=== PATIENT | male | born 1940 | race Caucasian/White ===

== ENCOUNTER 2022-05-28 18:54 | Observation (INO) | payer OTHER, BC ==
[2022-05-28 19:24] VITALS: BMI 35.2
[2022-05-28 20:13] LABS: BASO % 1.3 % (0-2.0); EOS % 1.5 % (0-4.5); HEMATOCRIT 38.2 % (35.4-49); HEMOGLOBIN 13.3 GM/dL (11.7-16.9); LYMPH % 21.9 % (8-40); MCH 30.9 pg (25.7-33.7); MCHC 34.8 g/dl (32.0-35.9); MEAN CELL VOLUME 88.9 fl (80-96); MEAN PLT VOLUME 8.4 fl (7.5-11.1); MONO % 8.5 % (3.8-10.2); NEUT % 66.8 % (42.8-82.8); PLATELET COUNT 271 10^3/uL (134-434); RDW 13.9 % (11.9-15.9); WHITE BLOOD COUNT 8.9 K/mm3 (4.0-10.0)
[2022-05-28 20:23] LABS: INR 1.03 (0.83-1.09); PROTHROMBIN TIME (PATIENT) 11.9 SEC (9.7-13.0)
[2022-05-28 20:25] LABS: ACTIVATED PTT 32.2 SECONDS (25.2-36.5)
[2022-05-28 20:34] LABS: CALCIUM 8.9 mg/dL (8.5-10.1)
[2022-05-28 20:35] LABS: ALBUMIN 3.6 g/dl (3.4-5.0); BLOOD UREA NITROGEN 21.8 mg/dL (7-18)
[2022-05-28 20:38] LABS: CREATININE 1.6 mg/dL (0.55-1.3)
[2022-05-28 20:39] LABS: BILIRUBIN,TOTAL 0.5 mg/dL (0.2-1); TOT PROT 6.6 g/dl (6.4-8.2)
[2022-05-28 20:43] LABS: N-TERMINAL BNP 296.9 pg/ml (5-450)
[2022-05-28] MEDS ORDERED: SODIUM CHLORIDE 0.9% 500 ML INFUS.BAG IV ONE (21:09)
[2022-05-28] MEDS ORDERED: FAMOTIDINE 20 MG/50 ML IVPB 20 MG/50 ML MG IVPB ONE ×2 (21:31→22:02)
[2022-05-28] MEDS ORDERED: MAG HYDROX/AL HYDROX/SIMETH 30 ML UNIT-DOSE CUP PO ONE (21:31)
[2022-05-28] MEDS: ACETAMINOPHEN 1000 MG/100 ML BAG IVPB ONE ×2 (22:01→22:03)
[2022-05-28] MEDS ORDERED: ACETAMINOPHEN 325 MG TABLET (FP) ONE (22:04)
[2022-05-28] MEDS ORDERED: ACETAMINOPHEN 325 MG TABLET (FP) PO ONE (22:05)
[2022-05-28 22:21] LABS: EPI CELLS 2 /uL (0-25.1); HYALINE CASTS 0 /uL (0-3.1); PH,URINE 5.5 (5.0-8.0); URINE APPEARANCE CLEAR; URINE BACTERIA 53 /uL (0-1359); URINE BILIRUBIN NEGATIVE (NEGATIVE); URINE COLOR YELLOW; URINE GLUCOSE (UA) NEGATIVE (NEGATIVE); URINE KETONE NEGATIVE (NEGATIVE); URINE LEUK ESTERASE TRACE (NEGATIVE); URINE NITRITE NEGATIVE (NEGATIVE); URINE PROTEIN NEGATIVE (NEGATIVE); URINE RBC 2 /uL (0-23.9); URINE UROBILINOGEN 0.2 mg/dL (0.2-1.0); URINE WBC 5 /uL (0-25.8)
[2022-05-29 06:59] LABS: HEMATOCRIT 39.5 % (35.4-49); HEMOGLOBIN 13.5 GM/dL (11.7-16.9); MCH 30.1 pg (25.7-33.7); MCHC 34.3 g/dl (32.0-35.9); MEAN CELL VOLUME 87.9 fl (80-96); MEAN PLT VOLUME 8.4 fl (7.5-11.1); PLATELET COUNT 235 10^3/uL (134-434); RBC 4.49 M/mm3 (4.00-5.60); RDW 13.6 % (11.9-15.9); WHITE BLOOD COUNT 13.7 K/mm3 (4.0-10.0)
[2022-05-29 07:20] LABS: BLOOD UREA NITROGEN 21.2 mg/dL (7-18); CALCIUM 8.5 mg/dL (8.5-10.1); MAGNESIUM 1.7 mg/dL (1.8-2.4)
[2022-05-29 07:21] LABS: ALBUMIN 3.2 g/dl (3.4-5.0)
[2022-05-29 07:23] LABS: CREATININE 1.6 mg/dL (0.55-1.3); PHOSPHOROUS 2.1 mg/dL (2.5-4.9)
[2022-05-29 07:25] LABS: BILIRUBIN,TOTAL 0.7 mg/dL (0.2-1); TOT PROT 5.8 g/dl (6.4-8.2)
[2022-05-29 09:08] LABS: ANISOCYTOSIS 1+; MACROCYTOSIS 1+
[2022-05-29] MEDS: INSULIN SLIDING SCALE (NOVOLOG) 1 VIAL SQ SCH ×4 (09:13→22:30)
[2022-05-29] MEDS ORDERED: POLYETHYLENE GLYCOL (HEALTHYLAX) 3350 17 GM PACKET ONE (09:19)
[2022-05-29] MEDS ORDERED: ATORVASTATIN CA 10 MG TABLET (FP) ONE (09:19)
[2022-05-29] MEDS ORDERED: HYDROCHLOROTHIAZIDE 25 MG TABLET (FP) ONE (09:19)
[2022-05-29] MEDS ORDERED: LISINOPRIL 20 MG TABLET ONE (09:19)
[2022-05-29] MEDS ORDERED: HEPARIN NA (PORCINE) 5,000 UNITS/ML 1ML VIAL ONE (09:20)
[2022-05-29] MEDS: POLYETHYLENE GLYCOL (HEALTHYLAX) 3350 17 GM PACKET PO SCH ×3 (09:26→22:22)
[2022-05-29] MEDS: HEPARIN NA (PORCINE) 5,000 UNITS/ML 1ML VIAL SQ SCH ×3 (09:27→22:22)
[2022-05-29] MEDS: ATORVASTATIN CA 10 MG TABLET (FP) PO SCH (09:27)
[2022-05-29] MEDS: LISINOPRIL 20 MG TABLET PO SCH (09:27)
[2022-05-29] MEDS ORDERED: metFORMIN HCL 500 MG TABLET (FP) PO SCH (10:00)
[2022-05-29] MEDS ORDERED: HYDROCHLOROTHIAZIDE 12.5 MG CAPSULE (FP) PO SCH (10:00)
[2022-05-29] MEDS ORDERED: MAGNESIUM OXIDE 400 MG TABLET (FP) PO ONE (12:31)
[2022-05-29 22:54] VITALS: RESP 18
[2022-05-30] MEDS: HEPARIN NA (PORCINE) 5,000 UNITS/ML 1ML VIAL SQ SCH ×3 (06:01→21:58)
[2022-05-30] MEDS: INSULIN SLIDING SCALE (NOVOLOG) 1 VIAL SQ SCH ×4 (06:01→21:58)
[2022-05-30] MEDS: POLYETHYLENE GLYCOL (HEALTHYLAX) 3350 17 GM PACKET PO SCH ×3 (06:01→21:58)
[2022-05-30] MEDS: LISINOPRIL 20 MG TABLET PO SCH (09:42)
[2022-05-30] MEDS: ATORVASTATIN CA 10 MG TABLET (FP) PO SCH (09:43)
[2022-05-30 09:52] LABS: BASO % 0.9 % (0-2.0); EOS % 5.5 % (0-4.5); HEMATOCRIT 36.9 % (35.4-49); HEMOGLOBIN 12.8 GM/dL (11.7-16.9); LYMPH % 7.7 % (8-40); MCH 30.5 pg (25.7-33.7); MCHC 34.5 g/dl (32.0-35.9); MEAN CELL VOLUME 88.2 fl (80-96); MEAN PLT VOLUME 8.8 fl (7.5-11.1); NEUT % 77.9 % (42.8-82.8); PLATELET COUNT 256 10^3/uL (134-434); RBC 4.19 M/mm3 (4.00-5.60); RDW 14.1 % (11.9-15.9); WHITE BLOOD COUNT 10.7 K/mm3 (4.0-10.0)
[2022-05-30 10:15] LABS: ALBUMIN 3.1 g/dl (3.4-5.0); CALCIUM 8.5 mg/dL (8.5-10.1); MAGNESIUM 2.2 mg/dL (1.8-2.4)
[2022-05-30 10:16] LABS: BLOOD UREA NITROGEN 28.6 mg/dL (7-18)
[2022-05-30 10:18] LABS: CREATININE 1.8 mg/dL (0.55-1.3)
[2022-05-30 10:20] LABS: TOT PROT 5.9 g/dl (6.4-8.2)
[2022-05-30] MEDS ORDERED: SODIUM CHLORIDE 1,000 ML IV SCH (11:30)
[2022-05-30] MEDS: NAPH,MB-DB/K PH,MBDB POWDER PACKET PO SCH ×2 (12:11→21:58)
[2022-05-30] MEDS: PANTOPRAZOLE 40 MG TABLET PO SCH (12:11)
[2022-05-31] MEDS: INSULIN SLIDING SCALE (NOVOLOG) 1 VIAL SQ SCH (06:13)
[2022-05-31] MEDS: POLYETHYLENE GLYCOL (HEALTHYLAX) 3350 17 GM PACKET PO SCH (06:13)
[2022-05-31] MEDS: HEPARIN NA (PORCINE) 5,000 UNITS/ML 1ML VIAL SQ SCH (06:13)
[2022-05-31 08:20] LABS: EPI CELLS 3 /uL (0-25.1); HYALINE CASTS 0 /uL (0-3.1); URINE APPEARANCE CLEAR; URINE BACTERIA 17 /uL (0-1359); URINE BILIRUBIN NEGATIVE (NEGATIVE); URINE COLOR YELLOW; URINE GLUCOSE (UA) NEGATIVE (NEGATIVE); URINE KETONE NEGATIVE (NEGATIVE); URINE LEUK ESTERASE TRACE (NEGATIVE); URINE NITRITE NEGATIVE (NEGATIVE); URINE PROTEIN NEGATIVE (NEGATIVE); URINE RBC 3 /uL (0-23.9); URINE UROBILINOGEN 0.2 mg/dL (0.2-1.0); URINE WBC 8 /uL (0-25.8)
[2022-05-31 10:45] LABS: BASO % 1.2 % (0-2.0); EOS % 7.2 % (0-4.5); HEMATOCRIT 34.8 % (35.4-49); HEMOGLOBIN 12.4 GM/dL (11.7-16.9); MCH 31.4 pg (25.7-33.7); MCHC 35.7 g/dl (32.0-35.9); MEAN CELL VOLUME 87.9 fl (80-96); MEAN PLT VOLUME 8.6 fl (7.5-11.1); MONO % 8.9 % (3.8-10.2); NEUT % 66.7 % (42.8-82.8); PLATELET COUNT 249 10^3/uL (134-434); RBC 3.96 M/mm3 (4.00-5.60); RDW 14.3 % (11.9-15.9); WHITE BLOOD COUNT 6.2 K/mm3 (4.0-10.0)
[2022-05-31] MEDS: ATORVASTATIN CA 10 MG TABLET (FP) PO SCH (10:49)
[2022-05-31] MEDS: NAPH,MB-DB/K PH,MBDB POWDER PACKET PO SCH (10:49)
[2022-05-31] MEDS: PANTOPRAZOLE 40 MG TABLET PO SCH (10:49)
[2022-05-31 11:01] LABS: BLOOD UREA NITROGEN 28.5 mg/dL (7-18); CALCIUM 8.6 mg/dL (8.5-10.1)
[2022-05-31 11:04] LABS: CREATININE 1.8 mg/dL (0.55-1.3)
[2022-05-31 11:05] LABS: BILIRUBIN,TOTAL 0.8 mg/dL (0.2-1); TOT PROT 5.8 g/dl (6.4-8.2)
[2022-05-31 11:58] VITALS: BP 149/88; PULSE 67; TEMP 98.4
[2022-05-31 15:21] LABS: PHOSPHOROUS 2.6 mg/dL (2.5-4.9)
== END 2022-05-31 12:38 | disposition home or self-care (01) ==
LOC: JER 18:54 → JERBED 22:03 → J5S 05-29 15:14
PROVIDERS: ADMIT Internal Medicine; ATTEND Nurse Practitioner Acute Care
PROC: 3E033NZ Introduction of Analgesics, Hypnotics, Sedatives into Peripheral Vein, Percutaneous Approach (ICD-10-PCS; principal; 2022-05-28)
PROC: 3E023GC Introduction of Other Therapeutic Substance into Muscle, Percutaneous Approach (ICD-10-PCS; 2022-05-28)
PROC: 3E033GC Introduction of Other Therapeutic Substance into Peripheral Vein, Percutaneous Approach (ICD-10-PCS; 2022-05-28)
PROC: 3E0337Z Introduction of Electrolytic and Water Balance Substance into Peripheral Vein, Percutaneous Approach (ICD-10-PCS; 2022-05-28)
DX: F19.10 Other psychoactive substance abuse, uncomplicated (principal); R10.30 Lower abdominal pain, unspecified; E66.8 Other obesity; R00.1 Bradycardia, unspecified; R01.1 Cardiac murmur, unspecified; Z68.37 Body mass index [BMI] 37.0-37.9, adult; R79.89 Other specified abnormal findings of blood chemistry; R53.1 Weakness
CPT/HCPCS: 36415; 71046-TC-FY; 74177-TC; 76775-TC; 80053; 80061; 81003; 82570; 82962; 83690; 83735; 83880; 84100; 84156; 84439; 84443; 84484; 85025; 85610; 85730; 87086; 93005; 93010; 93306-TC; 96361; 96365; 96372; 96375; 99285-25; C9803-CS; G0378; J1644; Q9967; U0003; U0005

== ENCOUNTER 2023-07-16 17:55 | Emergency (ER) | payer OTHER, BC ==
[2023-07-16 18:06] VITALS: TEMP 98.7; BMI 37.4
[2023-07-16] MEDS ORDERED: FAMOTIDINE 20 MG/50 ML IVPB 20 MG/50 ML MG IVPB ONE ×2 (18:33→18:42)
[2023-07-16] MEDS ORDERED: MAG HYDROX/AL HYDROX/SIMETH 30 ML UNIT-DOSE CUP PO ONE (18:33)
[2023-07-16] MEDS ORDERED: MAG HYDROX/AL HYDROX/SIMETH 30 ML UNIT-DOSE CUP ONE (18:42)
[2023-07-16 19:10] LABS: EOS % 0.6 % (0-4.5); HEMATOCRIT 42.2 % (35.4-49); HEMOGLOBIN 14.1 GM/dL (11.7-16.9); LYMPH % 19.2 % (8-40); MCH 30.1 pg (25.7-33.7); MCHC 33.4 g/dl (32.0-35.9); MEAN PLT VOLUME 8.5 fl (7.5-11.1); MONO % 8.2 % (3.8-10.2); PLATELET COUNT 236 10^3/uL (134-434); RBC 4.69 M/mm3 (4.00-5.60); RDW 13.7 % (11.9-15.9); WHITE BLOOD COUNT 9.1 K/mm3 (4.0-10.0)
[2023-07-16 19:17] LABS: INR 1.09 (0.83-1.09); PROTHROMBIN TIME (PATIENT) 12.6 SEC (9.7-13.0)
[2023-07-16 19:57] LABS: ALBUMIN 3.9 g/dl (3.4-5.0)
[2023-07-16 20:00] LABS: CREATININE 1.5 mg/dL (0.55-1.3)
[2023-07-16 20:02] LABS: BILIRUBIN,TOTAL 0.7 mg/dL (0.2-1); TOT PROT 6.9 g/dl (6.4-8.2)
[2023-07-16 20:07] LABS: POTASSIUM 3.7 mmol/L (3.5-5.1)
[2023-07-16 20:10] LABS: BLOOD UREA NITROGEN 17.8 mg/dL (7-18)
[2023-07-16 20:36] LABS: EPI CELLS 12 /uL (0-25.1); HYALINE CASTS 0 /uL (0-3.1); URINE APPEARANCE CLEAR; URINE BACTERIA 98 /uL (0-1359); URINE BILIRUBIN NEGATIVE (NEGATIVE); URINE COLOR YELLOW; URINE GLUCOSE (UA) NEGATIVE (NEGATIVE); URINE KETONE TRACE (NEGATIVE); URINE LEUK ESTERASE 2+ (NEGATIVE); URINE NITRITE NEGATIVE (NEGATIVE); URINE PROTEIN NEGATIVE (NEGATIVE); URINE RBC 9 /uL (0-23.9); URINE UROBILINOGEN 0.2 mg/dL (0.2-1.0); URINE WBC 94 /uL (0-25.8)
[2023-07-16] MEDS ORDERED: BISACODYL 10 MG SUPP.RECT PR ONE (22:17)
[2023-07-16] MEDS ORDERED: BISACODYL 10 MG SUPP.RECT ONE (22:27)
[2023-07-17] MEDS ORDERED: CEFTRIAXONE 1 GM in DEXTROSE 5%-WATER - 100 ML IVPB ONE (00:02)
[2023-07-17] MEDS ORDERED: CEFTRIAXONE 1 GM/50 ML BAG ONE (00:24)
[2023-07-17 01:41] VITALS: BP 173/77; PULSE 85; RESP 18
== END 2023-07-17 02:24 | disposition home or self-care (01) ==
LOC: JER 17:55
PROC: 3E033GC Introduction of Other Therapeutic Substance into Peripheral Vein, Percutaneous Approach (ICD-10-PCS; 2023-07-16)
PROC: 3E03329 Introduction of Other Anti-infective into Peripheral Vein, Percutaneous Approach (ICD-10-PCS; principal; 2023-07-17)
DX: R10.12 Left upper quadrant pain (principal); R07.89 Other chest pain; R10.13 Epigastric pain
CPT/HCPCS: 36415; 71046-TC-FY; 74177-TC; 80053; 81003; 82550; 83605; 83690; 84484; 85025; 85610; 86850; 86900; 86901; 93005; 93010; 99285-25; Q9967

== ENCOUNTER 2023-07-20 10:34 | Emergency (ER) | payer OTHER, BC ==
[2023-07-20 10:58] VITALS: BP 170/86; PULSE 81; RESP 18; TEMP 97.6; BMI 37.4
[2023-07-20] MEDS ORDERED: MAG HYDROX/AL HYDROX/SIMETH 30 ML UNIT-DOSE CUP PO ONE (11:05)
[2023-07-20] MEDS ORDERED: FAMOTIDINE 20 MG/50 ML IVPB 20 MG/50 ML MG IVPB ONE (11:05)
[2023-07-20] MEDS ORDERED: MAG HYDROX/AL HYDROX/SIMETH 30 ML UNIT-DOSE CUP ONE (11:20)
[2023-07-20] MEDS ORDERED: FAMOTIDINE 10 MG/ML VIAL IVPB ONE (11:21)
[2023-07-20] MEDS ORDERED: MAGNESIUM CITRATE 300 ML BOTTLE PO ONE (11:22)
[2023-07-20] MEDS ORDERED: MAGNESIUM CITRATE 300 ML BOTTLE ONE (11:36)
[2023-07-20 12:06] LABS: BASO % 0.6 % (0-2.0); EOS % 1.3 % (0-4.5); HEMATOCRIT 41.9 % (35.4-49); HEMOGLOBIN 13.9 GM/dL (11.7-16.9); LYMPH % 11.4 % (8-40); MCH 29.9 pg (25.7-33.7); MCHC 33.2 g/dl (32.0-35.9); MEAN CELL VOLUME 90.2 fl (80-96); MEAN PLT VOLUME 8.9 fl (7.5-11.1); MONO % 7.4 % (3.8-10.2); NEUT % 79.3 % (42.8-82.8); PLATELET COUNT 257 10^3/uL (134-434); RBC 4.65 M/mm3 (4.00-5.60); WHITE BLOOD COUNT 7.6 K/mm3 (4.0-10.0)
[2023-07-20 12:23] LABS: POTASSIUM 3.9 mmol/L (3.5-5.1)
[2023-07-20 12:25] LABS: CALCIUM 9.2 mg/dL (8.5-10.1)
[2023-07-20 12:26] LABS: ALBUMIN 3.8 g/dl (3.4-5.0)
[2023-07-20 12:29] LABS: CREATININE 1.8 mg/dL (0.55-1.3)
[2023-07-20 12:30] LABS: BILIRUBIN,TOTAL 0.9 mg/dL (0.2-1)
[2023-07-20] MEDS ORDERED: LACTATED RINGERS SOLUTION 1000 ML INFUS.BAG IV ONE (12:33)
[2023-07-20] MEDS ORDERED: ACETAMINOPHEN 1000 MG/100 ML BAG IVPB ONE (12:33)
[2023-07-20] MEDS ORDERED: ACETAMINOPHEN INJECTION 100 ML IVPB ONE (13:49)
[2023-07-20 17:21] LABS: EPI CELLS 3 /uL (0-25.1); HYALINE CASTS 1 /uL (0-3.1); PH,URINE 5.5 (5.0-8.0); URINE APPEARANCE CLEAR; URINE BACTERIA 23 /uL (0-1359); URINE BILIRUBIN NEGATIVE (NEGATIVE); URINE COLOR YELLOW; URINE GLUCOSE (UA) NEGATIVE (NEGATIVE); URINE KETONE TRACE (NEGATIVE); URINE LEUK ESTERASE 1+ (NEGATIVE); URINE NITRITE NEGATIVE (NEGATIVE); URINE PROTEIN NEGATIVE (NEGATIVE); URINE RBC 14 /uL (0-23.9); URINE UROBILINOGEN 0.2 mg/dL (0.2-1.0); URINE WBC 56 /uL (0-25.8)
== END 2023-07-20 17:45 | disposition home or self-care (01) ==
LOC: JER 10:34
PROC: 3E033GC Introduction of Other Therapeutic Substance into Peripheral Vein, Percutaneous Approach (ICD-10-PCS; principal; 2023-07-20)
PROC: 3E033NZ Introduction of Analgesics, Hypnotics, Sedatives into Peripheral Vein, Percutaneous Approach (ICD-10-PCS; 2023-07-20)
DX: R07.9 Chest pain, unspecified (principal); R10.13 Epigastric pain; K59.00 Constipation, unspecified
CPT/HCPCS: 36415; 71045-TC-FY; 74176-TC; 80053; 81003; 83690; 84484; 85025; 87086; 93005; 93010; 99285-25